=== PATIENT | female | born 1950 | race Caucasian/White ===

== ENCOUNTER → 2024-09-05 | Outpatient (CLI) | payer SELFPAY, OTHER ==
--- NOTE | 2024-09-05 08:00 | MRI_ITS ---
PROCEDURE: MRI SPINE CERVICAL (ROUTINE) REASON FOR EXAM: Neck pain. TECHNIQUE: Noncontrast cervical spine MRI. COMPARISON: Cervical spine radiograph from 08/20/2024. FINDINGS: Cervical vertebral bodies maintain a normal height. There is mild levoscoliosis of the cervical spine. There is diminished signal intensity involving the discs throughout the cervical spine related to degenerative disc disease. Multilevel disc space narrowing with endplate spurring is present which is greatest from C5-C7. No acute fracture or subluxation is identified. Cervical spinal cord demonstrates a normal signal intensity and morphology. Cerebellar tonsils are within normal range. There is atrophy of the paraspinous musculature. Individual levels: C2-3: Disc osteophyte complex with no significant central canal stenosis or left neural foraminal narrowing. Facet/uncovertebral changes are present with mild right neural foraminal narrowing. C3-4: Mild retrolisthesis with disc osteophyte complex results in mild flattening of the ventral thecal sac with mild central canal stenosis. Facet/uncovertebral changes are present with [id number] right neural foraminal narrowing. Left neural foramina is patent. C4-5: Mild anterolisthesis. Disc osteophyte complex with mild flattening of the ventral thecal sac related to mild central canal stenosis. Facet/uncovertebral changes are identified with [id number] right and mild left neural foraminal narrowing. C5-6: Disc osteophyte complex results in flattening of the ventral thecal sac and abutment of the ventral spinal cord with [id number] central canal stenosis. Facet/uncovertebral changes are present with moderate to severe right and moderate left neural foraminal narrowing. C6-7: Disc osteophyte complex results in flattening of the ventral thecal sac with mild central canal stenosis. Facet/uncovertebral changes are present with severe right neural foraminal narrowing and mild left neural foraminal narrowing. C7-T1: Disc osteophyte complex results in mild flattening of the left ventral thecal sac with no significant central canal stenosis or right neural foraminal narrowing. Facet/uncovertebral changes are present with mild left neural foraminal narrowing. MRI/Spine Cervical (Routine) IMPRESSION: 1. Multilevel degenerative disc disease and spondylosis with [id number] c entral canal stenosis at C5-C6 and mild central canal stenosis at C3-C4, C4-C5, and C6-C7. Multilevel varying degrees of neura l foraminal narrowing are identified as above. 2. No abnormal cord signal. Reading Location: [id number]
== END | disposition home or self-care (01) ==
LOC: MRI 07:36
PROVIDERS: Referring Provider Orthopaedic Surgery Orthopaedic Surgery of the Spine; Visit Provider Orthopaedic Surgery Orthopaedic Surgery of the Spine
DX: R52 Pain, unspecified (principal)
CPT/HCPCS: 72141